=== PATIENT | female | born 1995 ===

== ENCOUNTER → 2021-04-08 12:05 | Emergency (ER) | payer SELFPAY ==
[2021-04-08 12:06] VITALS: BP 111/61; PULSE 78; RESP 16; TEMP 36.6; O2SAT 98; BMI 20.7
--- NOTE | 2021-04-08 13:00 | ED.RN ---
pt elopsed at 1885
--- NOTE | 2021-04-08 13:05 | ED.RN ---
PT LEFT DEPARTMENT. DR CHOU
--- NOTE | 2021-04-08 13:14 | EX.ED.DYSGE1 ---
HPI History of Present Illness Chief Complaint: Nausea/Vomiting Informant: patient Onset/Context/Timing Onset: Yesterday Context: Gradual Onset Timing: Continuous Quality: Aching, sharp Location: Right frontal Worsened by: Nothing Relieved by: Nothing Narrative Narrative: Patient presents with headache, nausea, and vomiting that began yesterday. Patient states her headache is over the right frontal area. Patient describes as aching and sharp. Patient states nothing makes it worse and nothing makes it better. Patient admits to some abdominal pain with it as well. Patient also admits to some rhinorrhea. Patient denies any fevers or chills. Patient denies any chest pain or shortness of breath. Patient states she was exposed to someone with COVID-19. PFSH PFSH no medical history Allergy/AdvReac Type Severity Reaction Status Date / Time Penicillins Allergy Other Verified 04/08/21 12:09 no surgical history Social History Smoking Status: Current every day smoker tobacco type: cigarettes ROS ROS ED Constitutional Constitutional ED: Denies chills or fever(s) Eyes Eyes: Denies blurry vision or change in vision ENT ENT ED: Reports rhinorrhea; Denies sore throat Cardiovascular Cardiovascular: Denies chest pain or palpitations Respiratory/Chest Respiratory/Chest: Denies cough or dyspnea Gastrointestinal Gastrointestinal: Reports abdominal pain, nausea and vomiting Genitourinary Genitourinary ED: Denies dysuria or hematuria Musculoskeletal Musculoskeletal: Reports back pain; Denies neck pain Integumentary Denies abscess or rash Neurologic Neurologic: Reports headache(s); Denies weakness Allergic/Immunologic Allergic/Immunologic ED: Denies mouth swelling or urticaria EXAM Physical Exam Const Vital Signs: 04/08/21 12:06 Temperature 97.8 F Temperature Source Temporal Pulse Rate 78 Respiratory Rate 16 Blood Pressure 111/61 Blood Pressure Mean 77 Pulse Ox 98 Oxygen Delivery Method Room Air Positive well nourished and well developed General Appearance ED: well developed HEENT Reports moist mucous membranes Neck supple and no JVD Resp normal respiratory effort and clear to auscultation bilaterally Cardio regular rate, regular rhythm and no murmurs GI normal to inspection, nondistended, normoactive bowel sounds and non-tender Palpation: soft Extremity normal to inspection General Extremety ED: Negative for edema or tenderness General Extremity: Negative for edema Neuro oriented x3, CN's II-XII intact bilaterally and no sensory deficits noted Sensorium / Orientation: alert Motor Exam: strength 5/5 throughout Psych mental status grossly normal Skin no rashes or lesions noted MDM MDM MDM Narrative Medical decision making narrative: Patient was ordered IV fluids, Reglan, and Benadryl. CBC and comprehensive metabolic profile were also ordered. Audible chest x-ray was ordered. COVID-19 rapid antigen was ordered. Patient left the emergency department prior to obtaining any testing. Patient left without telling anyone. Patient left without signing any discharge or AMA papers. Discharge Plan Triage Chief Complaint: Nausea/Vomiting ED Provider: Herbert Soto Dx/Rx/DC Orders Clinical Impression: Headache Primary Care Provider: Care Physician,No Primary Referrals: Care Physician,No Primary [Primary Care Provider] - Disposition Disposition: Elopement
== END | disposition left against medical advice (07) ==
PROVIDERS: Emergency Provider Emergency Medicine
DX: R51.9 Headache, unspecified (principal); R11.2 Nausea with vomiting, unspecified; Z20.822 Contact with and (suspected) exposure to COVID-19; R10.9 Unspecified abdominal pain; J34.89 Other specified disorders of nose and nasal sinuses; M54.9 Dorsalgia, unspecified; Z88.0 Allergy status to penicillin; F17.210 Nicotine dependence, cigarettes, uncomplicated
CPT/HCPCS: 99281